=== PATIENT | female | born 1965 ===

== ENCOUNTER 2017-09-30 07:54 | Day surgery (SDC) | payer SELFPAY ==
[2017-09-30] MEDS ORDERED: cefOXitin IV 1 gm in Dextrose 1 GM/50 ML BAG IVPB ONE (07:59)
[2017-09-30 08:02] VITALS: BMI 27.3
[2017-09-30 08:18] VITALS: O2SAT 100
[2017-09-30] MEDS ORDERED: Lactated Ringer's 1,000 ML IV ONE ×2 (08:37→10:20)
[2017-09-30] MEDS ORDERED: Midazolam 2 MG/2 ML VIAL ONE (09:03)
[2017-09-30] MEDS ORDERED: Propofol 10 mg/ml Inj (20 ML) ONE (09:03)
[2017-09-30] MEDS ORDERED: Silver Nitrate Topical - Stick ONE (09:08)
[2017-09-30] MEDS ORDERED: Ferric Subsulfate Sol(60 mL) ONE (09:08)
[2017-09-30] MEDS ORDERED: Silver Nitrate Topical - Stick TOP ONE (10:15)
[2017-09-30] MEDS ORDERED: Lactated Ringer's 1,000 ML IV SCH (10:45)
[2017-09-30 12:54] VITALS: BP 111/76; PULSE 67; RESP 18; TEMP 98.3
--- NOTE | 2017-10-07 19:28 | OP ---
PROCEDURE DATE: 09/30/2017 PREOPERATIVE DIAGNOSES: Thickened endometrium and endometrial polyp. POSTOPERATIVE DIAGNOSES: Thickened endometrium and endometrial polyp. PROCEDURE: Hysteroscopy, dilatation and curettage, and polypectomy with MyoSure. SURGEON: Dayna Little MD. ESTIMATED BLOOD LOSS: 5 mL intravenous fluid of 1 L of lactated Ringer's. FLUID DEFICIT: 100 mL. DISTENSION MEDIA: Normal saline used as distension media. FINDINGS: Both ostia appear grossly normal under hysteroscopic evaluation. Approximately 0.5-cm polyp seen on anterior uterine wall, otherwise atropic endometrium noted. ADDITIONAL GROSS FINDINGS: Uterus anteverted and normal size, no adnexal masses identified on examination under anesthesia. PROCEDURE: The patient was taken to the operating room, where she was given general anesthesia without difficulty and she was prepped and draped in the sterile manner under general anesthesia. After bimanual exam was performed, the cervix was visualized after weighted speculum was placed in the vagina and the anterior lip of the cervix was grasped with a tenaculum. The uterus was sounded to 8 cm. The endocervical canal was dilated with Gaston's and Hegar dilators to a #18. The hysteroscope was then introduced into the uterine cavity using normal saline as the distension media with the attached camera. The endometrial cavity was then visualized with the findings as noted above. Bilateral ostia were seen and noted to be grossly normal. The polyp on the anterior uterine wall was identified and the remainder of the cavity appeared grossly normal. The MyoSure device was then introduced into the uterine cavity and was activated for removal of the endometrial polyp. The polyp was removed in its entirety. Following this, the hysteroscope and the MyoSure device was removed through the uterine cavity. A sharp curette was then introduced and used to obtain moderate amount of tissue. This was then handed off the field and send to pathology. The tenaculum was then removed and minimal bleeding was seen at the tenaculum site. This was stopped with silver nitrate. All instruments were then removed. The patient was repositioned, awakened from anesthesia, and transferred to the recovery room in stable condition. The patient will be discharged today with Motrin for pain, instructions for pelvic rest, and to follow up in the office in two weeks for postop evaluation. Dayna Little MD
== END 2017-09-30 13:28 | disposition home or self-care (01) ==
LOC: H.OPSURG 07:54
PROVIDERS: ATTEND Obstetrics & Gynecology
DX: N92.6 Irregular menstruation, unspecified (principal); N84.0 Polyp of corpus uteri
CPT/HCPCS: 36415; 58558; 86850; 86900; 88305; J0694; J2001; J2250; J2704; J3010; J7030; J7120